=== PATIENT | female | born 1955 | race Hispanic/Latino ===

== ENCOUNTER 2019-05-22 17:01 | Emergency (ER) | payer OTHER, MEDICARE | END 2019-05-22 19:51 | disposition home or self-care (01) | LOC: EDH 17:01 | DX: S13.4XXA Sprain of ligaments of cervical spine, initial encounter (principal); S49.82XA Other specified injuries of left shoulder and upper arm, initial encounter; E11.9 Type 2 diabetes mellitus without complications; I10 Essential (primary) hypertension; E78.00 Pure hypercholesterolemia, unspecified; Z90.49 Acquired absence of other specified parts of digestive tract; Z90.710 Acquired absence of both cervix and uterus; Z87.891 Personal history of nicotine dependence; Z88.5 Allergy status to narcotic agent; V49.40XA Driver injured in collision with unspecified motor vehicles in traffic accident, initial encounter; Y93.89 Activity, other specified; Y92.89 Other specified places as the place of occurrence of the external cause; Y99.8 Other external cause status | CPT/HCPCS: 71046; 72040; 73030 ==

== ENCOUNTER 2022-12-12 04:58 | Observation (INO) | payer OTHER, MEDICARE ==
[2022-12-09 11:39] LABS: BASOPHILS % (AUTO) 1.1 % (0.0-5.0); EOSINOPHILS # (AUTO) 0.85 K/uL (0.00-0.70); HEMATOCRIT 33.1 % (36-48); IMMATURE GRANULOCYTE ABSOLUTE 0.02 K/uL (0-1); LYMPHOCYTES # (AUTO) 2.4 K/uL (1.0-4.8); LYMPHOCYTES % (AUTO) 25.9 % (21.0-51.0); MEAN CORPUSCULAR HEMOGLOBIN 27.2 pg (27.0-33.0); MEAN CORPUSCULAR HGB CONC 32.3 g/dL (32.0-36.0); MONOCYTES # (AUTO) 0.6 K/uL (0.1-1.0); MONOCYTES % (AUTO) 6.4 % (3.0-13.0); NEUTROPHILS # (AUTO) 5.4 K/uL (1.8-7.7); NEUTROPHILS % (AUTO) 57.4 % (40.0-77.0); PLATELET COUNT (AUTO) 376 K/uL (130-400); RED BLOOD CELL COUNT(AUTO) 3.94 MIL/uL (4.00-5.50); RED CELL DISTRIBUTION WIDTH 13.8 % (11.0-15.5); WHITE BLOOD COUNT (AUTO) 9.4 K/uL (4.8-10.8)
[2022-12-09 11:53] LABS: ALBUMIN 3.4 g/dL (3.5-5.0); BILIRUBIN,TOTAL 0.2 mg/dL (0.2-1.0); CREATININE 1.3 mg/dL (0.5-1.5); POTASSIUM 5.1 mmol/L (3.5-5.1); TOTAL PROTEIN, SERUM 7.6 g/dL (6.0-8.3)
[2022-12-09 16:28] VITALS: BP_SYST 180; BP_SYST 189; BP_DIAS 63; BP_DIAS 94; PULSE 50; RESP 18
[~2022-12-12] VITALS: Ht 147.3 cm; Wt 82.9 kg
[2022-12-12] VITALS (27 sets, daily range): BP systolic 101–206; BP diastolic 44–92; PULSE 61–96; RESP 12–19; O2SAT 100
[~2022-12-12 04:58] MED LIST: DICL50TA9 PO; GABA300T25 PO; GEMF600T89 PO; GLIP2.5T2 PO; HYDR12.54 PO; INSU100V12 SQ; LEVO50TA11 PO; LISI10TA24 PO; LISI20TA24 PO; METF-446 PO; ROSU5TAB12 PO
[2022-12-12] MEDS ORDERED: 0.9%NACL 1000ML 1,000 ML IV ONE (05:06)
[2022-12-12] MEDS ORDERED: CEFAZOLIN SODIUM 1 GM VIAL ONE (05:39)
[2022-12-12] MEDS ORDERED: GENTAMICIN SULFATE 80 MG/2 ML VIAL ONE (05:39)
[2022-12-12] MEDS: CEFAZOLIN SODIUM 2 GM VIAL ONE ×2 (05:46→07:32)
[2022-12-12] MEDS ORDERED: ASPI-1197 PO (05:56)
[2022-12-12] MEDS ORDERED: MULT-1283 PO (05:56)
[2022-12-12] MEDS ORDERED: MIDAZOLAM HCL 1 MG/ML 2ML VIAL ONE ×2 (06:51→07:08)
[2022-12-12] MEDS ORDERED: FENTANYL CITRATE PF 50 MCG/1 ML 2ML VIAL ONE (07:08)
[2022-12-12] MEDS ORDERED: PROPOFOL 10 MG/ML 20ML VIAL IV ONE (07:08)
[2022-12-12] MEDS ORDERED: MORPHINE PF 100MG/10ML AMP IV ONE (07:11)
[2022-12-12] MEDS ORDERED: LIDOCAINE 2%-EPI 1:200,000 20 ML VIAL IJ ONE ×2 (07:27→08:33)
[2022-12-12] MEDS ORDERED: 0.9%NACL 100ML 48.45 ML, ROPIVACAINE 0.5% 5MG/ML 30ML 246.25 MG, KETOROLAC TROMETHAMINE... IV PRN ×5 (07:30)
[2022-12-12] MEDS ORDERED: EPHEDRINE SULFATE 50 MG/ML AMPULE ONE (07:34)
[2022-12-12] MEDS ORDERED: TRANEXAMIC ACID 1000MG/10ML ONE ×2 (07:41→08:52)
[2022-12-12] MEDS ORDERED: PROPOFOL 1000 MG/100 ML 100 ML IV ONE (07:42)
[2022-12-12] MEDS ORDERED: ROCURONIUM 10MG/1ML SYR 10 MG/ML ML ONE (07:50)
[2022-12-12] MEDS ORDERED: ROPIVACAINE 0.5% 5MG/ML 30ML IJ ONE (08:31)
[2022-12-12] MEDS ORDERED: ONDANSETRON 4MG INJ ONE (09:02)
[2022-12-12] MEDS ORDERED: INSULIN HUMULIN R 100 UNIT/ML 3ML ONE (09:47)
[2022-12-12] MEDS ORDERED: DiphenhydrAMINE HCL 50 MG/ML VIAL IM PRN (11:30)
[2022-12-12] MEDS: 0.9%NACL 1000ML 1,000 ML IV SCH (11:30)
[2022-12-12] MEDS ORDERED: DIPHENHYDRAMINE HCL 25 MG CAPSULE PO PRN ×2 (11:30→19:30)
[2022-12-12] MEDS ORDERED: HYDRALAZINE 20MG/ML VIAL IV PRN (12:00)
[2022-12-12] MEDS ORDERED: KCL 20 MEQ ERTAB PO PRN (12:00)
[2022-12-12] MEDS ORDERED: MAGNESIUM 2GM PREMIX 50ML 50 ML IV PRN (12:00)
[2022-12-12] MEDS ORDERED: HYDROMORPHONE PCA 10MG/50 ML ( 0.2 MG/ML ) IV PRN (12:00)
[2022-12-12] MEDS ORDERED: POTASSIUM CHLORIDE 10% ELIXIR 20 MEQ/15 ML UDCUP PO PRN (12:00)
[2022-12-12] MEDS ORDERED: POTASSIUM CHLORIDE 20MEQ/100ML 100 ML IV PRN ×2 (12:00)
[2022-12-12 12:23] LABS: HEMATOCRIT 28.5 % (36-48); MEAN CORPUSCULAR HEMOGLOBIN 26.9 pg (27.0-33.0); MEAN CORPUSCULAR HGB CONC 31.6 g/dL (32.0-36.0); MEAN CORPUSCULAR VOLUME 85.3 fL (79-99); RED BLOOD CELL COUNT(AUTO) 3.34 MIL/uL (4.00-5.50); RED CELL DISTRIBUTION WIDTH 13.4 % (11.0-15.5); WHITE BLOOD COUNT (AUTO) 10.7 K/uL (4.8-10.8)
[2022-12-12] MEDS ORDERED: ONDANSETRON 4MG INJ IVP PRN (12:30)
[2022-12-12] MEDS ORDERED: MAG/ALUM/SIMETH 30 ML UDCUP PO PRN (12:30)
[2022-12-12] MEDS ORDERED: BENZOCAINE/MENTH/CETYLPYRD CL 1 EACH LOZENGE MM PRN (12:30)
[2022-12-12] MEDS ORDERED: ACETAMINOPHEN WITH CODEINE 1 TAB TAB PO PRN ×2 (12:30)
[2022-12-12] MEDS: RIVAROXABAN 10 MG TABLET PO SCH (12:30)
[2022-12-12] MEDS ORDERED: TRAMADOL HCL 50 MG TABLET PO PRN ×2 (12:30)
[2022-12-12] MEDS ORDERED: HYDROCODONE/ACETAMINOPHEN 5/325 MG TAB PO PRN (12:30)
[2022-12-12] MEDS ORDERED: ONDANSETRON ODT 4MG TAB SL PRN (12:30)
[2022-12-12] MEDS ORDERED: LACTULOSE 20 GM/30 ML UDCUP PO PRN (12:30)
[2022-12-12] MEDS ORDERED: DIPHENOXYLATE HCL/ATROPINE 2.5/0.025 MG TAB PO PRN (12:30)
[2022-12-12] MEDS ORDERED: ACETAMINOPHEN 325 MG TAB PO PRN ×2 (12:30)
[2022-12-12 12:39] LABS: BILIRUBIN,TOTAL 0.1 mg/dL (0.2-1.0); CREATININE 1.2 mg/dL (0.5-1.5); MAGNESIUM 1.6 mg/dL (1.80-2.40); POTASSIUM 4.2 mmol/L (3.5-5.1); TOTAL PROTEIN, SERUM 6.5 g/dL (6.0-8.3)
[2022-12-12] MEDS: CEFAZOLIN SODIUM 2 GM VIAL IVPB SCH (15:03)
[2022-12-12] MEDS ORDERED: MAGNESIUM 2GM PREMIX 50ML 50 ML IV SCH (16:30)
[2022-12-12] MEDS: INSULIN HUMULIN R 100 UNIT/ML 3ML SQ SCH ×2 (17:06→21:00)
[2022-12-12] MEDS: ATORVASTATIN 10 MG TABLET PO SCH (20:28)
[2022-12-13] VITALS (8 sets, daily range): BP systolic 108–141; BP diastolic 55–64; PULSE 53–69; RESP 16–18; O2SAT 98–100
[2022-12-13] MEDS: CEFAZOLIN SODIUM 2 GM VIAL IVPB SCH (00:22)
[2022-12-13 05:25] LABS: HEMATOCRIT 26.6 % (36-48); MEAN CORPUSCULAR HEMOGLOBIN 27.1 pg (27.0-33.0); MEAN CORPUSCULAR VOLUME 84.7 fL (79-99); RED BLOOD CELL COUNT(AUTO) 3.14 MIL/uL (4.00-5.50); RED CELL DISTRIBUTION WIDTH 13.6 % (11.0-15.5); WHITE BLOOD COUNT (AUTO) 9.4 K/uL (4.8-10.8)
[2022-12-13 06:05] LABS: ALBUMIN 2.7 g/dL (3.5-5.0); BILIRUBIN,TOTAL 0.2 mg/dL (0.2-1.0); TOTAL PROTEIN, SERUM 6.1 g/dL (6.0-8.3)
[2022-12-13 06:46] LABS: CREATININE 1.1 mg/dL (0.5-1.5); MAGNESIUM 2.2 mg/dL (1.80-2.40)
[2022-12-13] MEDS: INSULIN HUMULIN R 100 UNIT/ML 3ML SQ SCH ×4 (06:54→20:45)
[2022-12-13] MEDS: 0.9%NACL 1000ML 1,000 ML IV SCH ×3 (08:30→18:13)
[2022-12-13] MEDS: MULTIVITAMIN WITH MINERALS PO SCH (09:00)
[2022-12-13] MEDS ORDERED: NON-FORMULARY MEDICATION 1 EACH (Rosuvastatin Calcium 1 TAB) PO SCH (09:00)
[2022-12-13] MEDS ORDERED: SCOPOLAMINE HYDROBROMIDE 1 EACH ADH..PATCH TD SCH ×2 (09:30)
[2022-12-13] MEDS: RIVAROXABAN 10 MG TABLET PO SCH (10:14)
[2022-12-13] MEDS: GEMFIBROZIL 600 MG TABLET PO SCH (10:14)
[2022-12-13] MEDS: LEVOTHYROXINE 50 MCG TABLET PO SCH (10:14)
[2022-12-13] MEDS: HYDROCODONE/ACETAMINOPHEN 5/325 MG TAB PO PRN ×2 (10:15→17:02)
[2022-12-13] MEDS: ATORVASTATIN 10 MG TABLET PO SCH (20:37)
[2022-12-14] VITALS (7 sets, daily range): BP systolic 133–162; BP diastolic 48–65; PULSE 55–72; RESP 17–20; O2SAT 96–97
[2022-12-14 04:08] LABS: BASOPHILS # (AUTO) 0.05 K/uL (0.00-0.20); BASOPHILS % (AUTO) 0.6 % (0.0-5.0); EOSINOPHILS # (AUTO) 0.23 K/uL (0.00-0.70); EOSINOPHILS % (AUTO) 2.6 % (0.0-8.0); HEMATOCRIT 26.1 % (36-48); IMMATURE GRANULOCYTE ABSOLUTE 0.03 K/uL (0-1); LYMPHOCYTES # (AUTO) 1.4 K/uL (1.0-4.8); LYMPHOCYTES % (AUTO) 15.2 % (21.0-51.0); MEAN CORPUSCULAR HEMOGLOBIN 27.3 pg (27.0-33.0); MEAN CORPUSCULAR HGB CONC 32.6 g/dL (32.0-36.0); MEAN CORPUSCULAR VOLUME 83.9 fL (79-99); MONOCYTES # (AUTO) 0.9 K/uL (0.1-1.0); MONOCYTES % (AUTO) 10.4 % (3.0-13.0); NEUTROPHILS # (AUTO) 6.4 K/uL (1.8-7.7); NEUTROPHILS % (AUTO) 70.9 % (40.0-77.0); PLATELET COUNT (AUTO) 306 K/uL (130-400); RED BLOOD CELL COUNT(AUTO) 3.11 MIL/uL (4.00-5.50); RED CELL DISTRIBUTION WIDTH 13.7 % (11.0-15.5)
[2022-12-14 04:15] LABS: ALBUMIN 2.6 g/dL (3.5-5.0); BILIRUBIN,TOTAL 0.3 mg/dL (0.2-1.0); POTASSIUM 4.4 mmol/L (3.5-5.1); TOTAL PROTEIN, SERUM 6.5 g/dL (6.0-8.3)
[2022-12-14] MEDS: HYDROCODONE/ACETAMINOPHEN 5/325 MG TAB PO PRN ×3 (05:07→22:59)
[2022-12-14] MEDS ORDERED: BISACODYL 10 MG SUPP.RECT RC PRN (05:30)
[2022-12-14] MEDS: INSULIN HUMULIN R 100 UNIT/ML 3ML SQ SCH ×4 (06:41→21:00)
[2022-12-14] MEDS: MULTIVITAMIN WITH MINERALS PO SCH (09:00)
[2022-12-14] MEDS: RIVAROXABAN 10 MG TABLET PO SCH (09:01)
[2022-12-14] MEDS: GEMFIBROZIL 600 MG TABLET PO SCH (09:01)
[2022-12-14] MEDS: BISACODYL 5 MG TABLET.DR PO SCH (09:01)
[2022-12-14] MEDS: LEVOTHYROXINE 50 MCG TABLET PO SCH (09:01)
[2022-12-14] MEDS: ATORVASTATIN 10 MG TABLET PO SCH (20:08)
[2022-12-15] VITALS: BP 160/66; PULSE 58; RESP 20
[2022-12-15 04:00] VITALS: BP 134/60; PULSE 69; RESP 20
[2022-12-15 05:49] LABS: HEMATOCRIT 26.3 % (36-48); MEAN CORPUSCULAR HEMOGLOBIN 27.1 pg (27.0-33.0); MEAN CORPUSCULAR HGB CONC 32.3 g/dL (32.0-36.0); MEAN CORPUSCULAR VOLUME 83.8 fL (79-99); RED BLOOD CELL COUNT(AUTO) 3.14 MIL/uL (4.00-5.50); RED CELL DISTRIBUTION WIDTH 13.2 % (11.0-15.5); WHITE BLOOD COUNT (AUTO) 8.9 K/uL (4.8-10.8)
[2022-12-15 06:12] LABS: CREATININE 1.1 mg/dL (0.5-1.5)
[2022-12-15] MEDS: INSULIN HUMULIN R 100 UNIT/ML 3ML SQ SCH ×3 (06:17→16:30)
[2022-12-15] MEDS: HYDROCODONE/ACETAMINOPHEN 5/325 MG TAB PO PRN ×2 (06:26→13:08)
[2022-12-15 08:04] VITALS: BP 140/70; PULSE 55; RESP 17
[2022-12-15 08:45] VITALS: O2SAT 97
[2022-12-15] MEDS: BISACODYL 5 MG TABLET.DR PO SCH (08:54)
[2022-12-15] MEDS: RIVAROXABAN 10 MG TABLET PO SCH (08:54)
[2022-12-15] MEDS: GEMFIBROZIL 600 MG TABLET PO SCH (08:55)
[2022-12-15] MEDS: MULTIVITAMIN WITH MINERALS PO SCH (08:55)
[2022-12-15] MEDS: LEVOTHYROXINE 50 MCG TABLET PO SCH (09:00)
[2022-12-15 11:43] VITALS: BP 121/49; PULSE 56; RESP 18
[2022-12-15 16:00] VITALS: BP 142/65; PULSE 56; RESP 18
== END 2022-12-15 17:25 ==
LOC: DAH 04:58 → 4BH 04:59 → DAHIP 04:59 → UNDOADMIN 04:59 → DAH 04:59 → INTOOBSV 04:59 → 4BH 10:25
PROVIDERS: ADMIT Orthopaedic Surgery; ATTEND Orthopaedic Surgery
DX: M17.11 Unilateral primary osteoarthritis, right knee (principal); D62 Acute posthemorrhagic anemia; I12.9 Hypertensive chronic kidney disease with stage 1 through stage 4 chronic kidney disease, or unspecified chronic kidney disease; E11.22 Type 2 diabetes mellitus with diabetic chronic kidney disease; N18.30 Chronic kidney disease, stage 3 unspecified; D63.1 Anemia in chronic kidney disease; E66.01 Morbid (severe) obesity due to excess calories; E03.9 Hypothyroidism, unspecified; E78.5 Hyperlipidemia, unspecified; M48.061 Spinal stenosis, lumbar region without neurogenic claudication; Z79.01 Long term (current) use of anticoagulants; Z90.710 Acquired absence of both cervix and uterus; Z79.899 Other long term (current) drug therapy
CPT/HCPCS: 80053 ×4; 85025 ×2; 36415 ×5; 93005; 87641; 97039 ×8; 96365; 96366 ×2; 96375; 96367; 27447; 83735 ×3; 85027 ×3; 82948 ×15; 97161; 97116 ×7; 97530 ×4; 86850; 86900; 86901; 80048; A6260; J1815 ×3; G0378 ×48; A4510; J7120; A4215 ×2; A4649 ×4; J3475; J3010; J0690 ×4; J3490 ×5; J1170; J7030 ×2; J1580; J2250 ×2; J2704 ×2; J2274; J2405 ×2; J2795; A6223; C1763 ×2; C1776; A5120; A4223; A4222; A4221; A4663; A6450

== ENCOUNTER → 2023-09-18 | Outpatient (CLI) | payer OTHER ==
[~2023-09-18] MED LIST changes: -DICL50TA9 PO; -LISI10TA24 PO; +MULT-1283 PO; -ROSU5TAB12 PO; +ROSU5TAB43 PO
== END | disposition home or self-care (01) ==
LOC: SHCH 14:58
PROVIDERS: ATTEND Internal Medicine Cardiovascular Disease
DX: I73.9 Peripheral vascular disease, unspecified (principal)
CPT/HCPCS: 93925